=== PATIENT | female | born 1995 | race Caucasian/White ===

== ENCOUNTER 2017-04-14 18:22 | Emergency (ER) | payer OTHER ==
[2017-04-14] MEDS ORDERED: NS 0.9% 1000 ML* 1,000 ML IV ONE (18:57)
[2017-04-14] MEDS ORDERED: Morphine INJ* 4 MG/ML 1 ML CARPUJECT IV ONE (18:57)
[2017-04-14] MEDS ORDERED: Ondansetron INJ* 2 MG/ML VIAL IV ONE (18:57)
[2017-04-14] MEDS ORDERED: Ondansetron INJ* 2 MG/ML VIAL ONE (18:58)
[2017-04-14 19:09] LABS: Hematocrit 39 % (35-47); Mean Corpuscular HGB Conc 33 g/dl (31-36); Mean Corpuscular Hemoglobin 29 pg (27-31); Mean Corpuscular Volume 86 fL (80-97); Mean Platelet Volume 9 um3 (7.4-10.4); Red Blood Count 4.56 10^6/ul (4.0-5.4); Red Cell Distribution Width 14 % (10.5-15); White Blood Count 12.6 10^3/ul (3.5-10.8)
[2017-04-14] MEDS ORDERED: Iodixanol* (CONTRAST) 320 MG/ML 100 ML SDV IV ONE (19:21)
[2017-04-14 19:22] LABS: Albumin 4.4 g/dL (3.2-5.2); BUN/Creatinine Ratio 15.6 (8-20); Calcium 9.1 mg/dL (8.6-10.3); EGFR African American 149.2 (>60); Globulin 2.7 g/dL (2-4); Potassium 3.2 mmol/L (3.5-5.0); Total Bilirubin 0.4 mg/dL (0.2-1.0); Total Protein 7.1 g/dL (6.4-8.9)
[2017-04-14] MEDS ORDERED: Metoclopramide IV* 5 MG/ML 2 ML VIAL IV ONE (19:54)
[2017-04-14] MEDS ORDERED: Metoclopramide IV* 5 MG/ML 2 ML VIAL ONE (19:55)
--- NOTE | 2017-04-14 19:55 | RAD ---
Indication: Fall. Head and neck injury. Vomiting. Comparison: No relevant prior exams available on the [facility] for comparison. Technique: Noncontrast CT vertex of skull through foramen magnum. Report: Small RIGHT parieto-occipital scalp hematoma. Negative for calvarial or skull base fracture. The sulci, ventricles, and basal cisterns are normal for age. Watson matter white matter differentiation is preserved without evidence for edema. No intra or extra axial hemorrhage is detected. Unremarkable visualized orbital contents. Partial opacification of the frontal sinuses. Clear mastoid air spaces. IMPRESSION: 1. RIGHT parietal occipital scalp hematoma. 2. Negative for fracture or traumatic brain injury.
--- NOTE | 2017-04-14 19:58 | RAD ---
INDICATION: Pain post fall. Occipital hematoma. COMPARISON: CT brain of the same date. TECHNIQUE: Multidetector CT images foramen magnum to lung apices without contrast. Multiplanar reformation. REPORT: Mild motion artifact noted at the C6-C7 level. Normal vertebral alignment accounting for exam positioning without spondylolisthesis or subluxation at any level. Negative for cervical vertebral body or posterior element fracture. Negative for paravertebral hematoma. Preserved disc spaces. IMPRESSION: No CT evidence for traumatic cervical spine injury.
--- NOTE | 2017-04-14 20:23 | RAD ---
INDICATION: Fall with occipital hematoma. Vomiting. COMPARISON: No relevant prior exams available on the [facility] [place]. TECHNIQUE: Multidetector CT images were obtained from the lung apices to the ischial tuberosities with 76 mL Omnipaque 300 IV contrast. No oral contrast administered. Multiplanar reformation including bone algorithm lateral series of the thoracic and lumbar sacral spine. CHEST REPORT: Negative for pulmonary contusion, alveolar consolidation, pleural effusion, pneumothorax. Mild residual thymic tissue at the anterior mediastinum without concern. Negative for mediastinal hematoma. Negative for cardiomegaly or pericardial effusion. Unremarkable thoracic aorta. Negative for thoracic lymphadenopathy. Mild anterior column compression fracture of the T12 vertebral body with less than 30% loss of height at the anterior margin of the vertebral body. Negative for involvement of the middle or posterior columns or associated compromise of the central canal. Negative for significant associated paravertebral hematoma. Negative for additional thoracic spine, sternal, rib, or visualized shoulder girdle fracture. Negative for soft tissue hematoma. CHEST IMPRESSION: 1. Mild anterior column compression fracture of the T12 vertebral body with less than 30% loss of height at the anterior margin of the vertebral body. Negative for significant associated paravertebral hematoma. 2. No additional traumatic thoracic injury evident. ABDOMEN PELVIS REPORT: Unremarkable liver, gallbladder, pancreas, spleen. Unremarkable upper GI, small bowel, appendix visualized medial to the cecum, and colon. Negative for ascites, free air, hernias. Normal adrenal glands. Unremarkable kidneys with symmetric contrast excretion. No abnormality along the course of the nondilated ureters. Unremarkable urinary bladder. Anteverted uterus with IUD in place. Unremarkable adnexal regions. Negative for lymphadenopathy. Unremarkable abdominal aorta and iliac arteries. Physiologic distention of the IVC. Negative for lumbar sacral spine, pelvis, or proximal femur fracture. Normal lumbar sacral spine alignment. Preserved disc spaces. ABDOMEN PELVIS IMPRESSION: No traumatic abdominal pelvic visceral injury or lumbar sacral spine, pelvis, or proximal femur fracture or traumatic malalignment. Results discussed with Dr. Bennett 04/14/2017 8:08 PM EDT
[2017-04-14] MEDS ORDERED: PROCHLORPERAZINE INJ 5 MG/ML 2 ML VIAL IV ONE (20:30)
--- NOTE | 2017-04-14 21:08 | ED ---
Celia Salazar Thomas, scribed for Flaquito Bennett MD on 04/14/17 at 1900 . Head Injury - HPI Summary HPI Summary: The patient is a 21 y/o F c/o head, neck, and back pain s/p a fall in which she struck the back of her head on concrete. The patient was hanging from her pull- up bar when she lost her patient resource specialist and fell backwards onto the concrete. The pain is worsened by movement and she is in severe pain. The patient rates the pain 10/ 10. The injury occurred shortly prior to arrival and the patient was driven to the ED by her three friends who accompany her. The patient has been vomiting repeatedly as well. She is in C-collar at time of examination. The patient's preferred pronouns are them/they. 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 - she is accompanied by three friends Mechanism Of Injury: Fall From Height Of: - 7 feet, in which she struck the back of her head on concrete Onset/Duration: Traumatic, Still Present Pain Intensity: 10 Pain Scale Used: 0-10 Numeric Location of Head Injury: Other: - Back of her head Aggravating Factor(s): Movement Alleviating Factor(s): Other: - Nothing Associated Signs And Symptoms: Vomiting - repeatedly - Allergies/Home Medications Allergies/Adverse Reactions: Allergies Allergy/AdvReac Type Severity Reaction Status Date / Time No Known Allergies Allergy Verified 04/14/17 19:40 PMH/Surg Hx/FS Hx/Imm Hx Previously Healthy: No Endocrine/Hematology History: Denies: Hx Diabetes Cardiovascular History: Denies: Hx Hypertension - Surgical History Surgery Procedure, Year, and Place: None Infectious Disease History: No Infectious Disease History: Denies: Traveled Outside the [place] in Last 30 Days - Family History Known Family History: Negative: Hypertension, Diabetes - Social History Alcohol Use: Occasionally Hx Substance Use: Yes Substance Use Type: Reports: Marijuana Hx Tobacco Use: No Smoking Status (MU): Never Smoked Tobacco Review of Systems Negative: Fever, Chills Negative: Erythema - eyes Negative: Sore Throat Negative: Chest Pain Negative: Shortness Of Breath, Cough Positive: Vomiting - repeatedly. Negative: Abdominal Pain, Nausea Negative: dysuria, hematuria Positive: Other - Head, neck, and back pain s/p a fall. Negative: Myalgia, Edema - legs Negative: Rash Neurological: Other - NEGATIVE: dizziness All Other Systems Reviewed And Are Negative: Yes Physical Exam - Summary Physical Exam Summary: Constitutional: Well-developed, Well-nourished, Alert, Cooperative Skin: Warm, Dry HENT: Normocephalic; There is an occipital scalp hematoma. No Racoons eyes; No battles sign; No abrasion; No contusion; No hemotympanum; No maxilla facial tenderness or instability; Dentition are smooth; No dental trauma; No trismus Eyes: EOM normal, PERRL Neck: Trachea is midline. No stridor; No JVD; No step off; No posterior cervical spine tenderness Cardio: Rhythm regular, rate normal Heart sounds normal; Intact distal pulses; The pedal pulses are 2+ and symmetric. Radial pulses are 2+ and symmetric. Pulmonary/Chest wall: Effort normal; Breath sounds normal; Equal chest rise; No flail segment; No rib tenderness; No sternal tenderness Abd: Soft, Appearance normal. No distension; No tenderness; No palpable pulsatile mass; No Cullens sign; No Cho-Turners sign Musculoskeletal: There is posterior cervical midline tenderness. There is also thoracic midline tenderness. Full ROM and no tenderness at hips, ankles, shoulders, elbows and knees; No joint swelling; No paraspinal tenderness; No step off or deformity of the spine; Pelvis is stable to lateral compression and rock Neuro: Alert, Oriented x3, Strength normal, Cranial nerves II-XII are grossly intact. (-) Dysmetria, (-) Nystagmus, (-) Ataxia by finger to nose testing, (-) Sensory deficit. Her upper and lower strengths and sensations are intact. : No blood at urethral meatus Psych: Mood and affect Normal Triage Information Reviewed: Yes Vital Signs On Initial Exam: Initial Vitals Temp Pulse Resp BP Pulse Ox 97.6 F 120 20 0/0 100 04/14/17 18:39 04/14/17 18:39 04/14/17 18:39 04/14/17 18:39 04/14/17 18:39 Vital Signs Reviewed: Yes Diagnostics - Vital Signs Vital Signs Temp Pulse Resp BP Pulse Ox 04/14/17 18:39 97.6 F 120 20 0/0 100 - Laboratory Result Diagrams: 04/14/17 18:55 04/14/17 18:55 Lab Statement: Any lab studies that have been ordered have been reviewed, and results considered in the medical decision making process. - CT CT Brain CT Interpretation: No Acute Changes - 1. RIGHT parietal occipital scalp hematoma. 2. Negative for fracture or traumatic brain injury. ED physician has reviewed this report and agrees. CT Interpretation Completed By: Radiologist CT C-Spine CT Interpretation: No Acute Changes - No CT evidence for traumatic C-Spine injury. ED physician has reviewed this report and agrees. CT Interpretation Completed By: Radiologist CT Chest/Abd/Pel CT Interpretation: No Acute Changes - No traumatic abdominal pelvic visceral injury or lumbar sacral spine, pelvis, or proximal femur fracture or traumatic malalignment. ED physician has reviewed this CT Interpretation Completed By: Radiologist Re-Evaluation - Re-Evaluation First Eval Re-Evaluation Time: 21:02 Change: Unchanged Comment: She is having tingling in her hands bilterally. 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 Head Injury Course/Dx Assessment/Plan: The patient is a 21 y/o F c/o head, neck, and back pain s/p a fall in which she struck the back of her head on concrete. The patient was hanging from her pull-up bar when she lost her patient resource specialist and fell backwards onto the concrete. The pain is worsened by movement and she is in severe pain. The patient rates the pain 10/10. The injury occurred shortly prior to arrival and the patient was driven to the ED by her three friends who accompany her. The patient has been vomiting repeatedly as well. She is in C-collar at time of examination. The patient's preferred pronouns are them/they. In the ED course the patient was given Reglan, morphine, IV fluids, Zofran, and Compazine. Bloodwork was obtained. CT Brain shows 1. RIGHT parietal occipital scalp hematoma. 2. Negative for fracture or traumatic brain injury. CT Chest/Abd/Pel shows No traumatic abdominal pelvic visceral injury or lumbar sacral spine, pelvis, or proximal femur fracture or traumatic malalignment. CT C-Spine No CT evidence for traumatic C-Spine injury. The patient is diagnosed with severe concussion, persistent vomiting, and thoracic spine fracture. I spoke with Dr. Drew Schneider, ED physician at [facility], who accepts the patient for transfer. - Diagnoses Provider Diagnoses: Persistent vomiting, Severe concussion, Thoracic spine fracture - Physician Notifications Discussed Care Of Patient With: Drew Schneider Time Discussed With Above Provider: 20:40 Instructed by Provider To: Other - I spoke with Dr. Drew Schneider, ED physician at [facility], who accepts the patient for transfer. Discharge - Discharge Plan Condition: Fair Disposition: OTHER Discharge Disposition Comment: Transferred to [facility] for higher level of care. Referrals: Tricia Johns NP [Primary Care Provider] - The documentation as recorded by the Celia dumont Thomas accurately reflects the service I personally performed and the decisions made by me, Flaquito Bennett MD.
[2017-04-14 21:40] VITALS: BP 110/62
== END 2017-04-14 21:39 ==
LOC: ED 18:22
DX: S06.0X0A Concussion without loss of consciousness, initial encounter (principal); S22.089A Unspecified fracture of T11-T12 vertebra, initial encounter for closed fracture; R11.10 Vomiting, unspecified; W17.89XA Other fall from one level to another, initial encounter; Y93.B2 Activity, push-ups, pull-ups, sit-ups; Y92.9 Unspecified place or not applicable; Y99.9 Unspecified external cause status
CPT/HCPCS: 36415; 70450; 71260; 72125; 74177; 80053; 83605; 85025; 86850; 86900; 86901; 99285; J2270; J2405; J2765; Q9967

== ENCOUNTER 2017-05-03 14:04 | Emergency (ER) | payer OTHER ==
[2017-05-03 14:50] VITALS: BP 106/52
--- NOTE | 2017-05-03 15:01 | UC ---
Head Injury HPI - HPI Summary HPI Summary: 21 YEAR OLD FEMALE WITH A RECENT CONCUSSION AND CT ETC WORKUP AT [facility] PRESENTS WITH COMPLAINS OF HEADACHE, NAUSEA, AND PHOTOPHOBIA. - History Of Current Complaint Chief Complaint: UCHeadInjury Stated Complaint: FOLLOW UP HEAD INJURY NAUSEA LIGHT SENSITIVE Time Seen by Provider: 05/03/17 15:01 Hx Obtained From: Patient Hx Last Menstrual Period: 04/27/17 Onset/Duration: Gradual Onset Severity Currently: Moderate Severity Initially: Moderate Pain Scale Used: 0-10 Numeric - 5 - Allergies/Home Medications Allergies/Adverse Reactions: Allergies Allergy/AdvReac Type Severity Reaction Status Date / Time No Known Allergies Allergy Verified 05/03/17 14:50 Home Medications: Home Medications Escitalopram Oxalate [Lexapro 20 mg] 1 tab PO DAILY 05/03/17 [History Confirmed 05/03/17] PMH/Surg Hx/FS Hx/Imm Hx Previously Healthy: Yes Other History Of: Negative For: Anticoagulant Therapy - Surgical History Surgical History: None Surgery Procedure, Year, and Place: None - Family History Known Family History: Negative: Hypertension, Diabetes - Social History Alcohol Use: Occasionally Substance Use Type: Marijuana Smoking Status (MU): Never Smoked Tobacco Review of Systems Constitutional: Fatigue Skin: Negative Eyes: Negative ENT: Negative Respiratory: Negative Cardiovascular: Negative Gastrointestinal: Negative Genitourinary: Negative Motor: Negative Neurovascular: Negative Musculoskeletal: Negative Neurological: Headache, Weakness Psychological: Negative All Other Systems Reviewed And Are Negative: Yes Physical Exam Triage Information Reviewed: Yes Vital Signs: Initial Vital Signs Temp 37.2 C 05/03/17 14:42 Pulse 68 05/03/17 14:42 Resp 16 05/03/17 14:42 BP 106/52 05/03/17 14:42 Pulse Ox 100 05/03/17 14:42 Vital Signs Reviewed: Yes Eye Exam: Normal ENT Exam: Normal Dental Exam: Normal Neck exam: Normal Neck: Positive: 1 Respiratory Exam: Normal Cardiovascular Exam: Normal Abdominal Exam: Normal Musculoskeletal Exam: Normal Neurological: Positive: Fatigued Psychological Exam: Normal Skin Exam: Normal Head Injury Course/Dx - Differential Dx/Diagnosis Provider Diagnoses: CONCUSSION. HEADACHE. PHOTOPHOBIA Discharge - Discharge Plan Condition: Stable Disposition: HOME Prescriptions: Acetaminophen TAB* [Tylenol TAB*] 650 mg PO Q6H PRN #100 tab PRN Reason: Headache Patient Education Materials: Concussion (ED), Post Concussion Syndrome (ED) Referrals: Cliff Silveira MD [Medical Doctor] - Tricia Johns NP [Nurse Practitioner] -
== END 2017-05-03 15:15 | disposition home or self-care (01) ==
LOC: UCEAST 14:04
DX: S06.0X9D Concussion with loss of consciousness of unspecified duration, subsequent encounter (principal); X58.XXXD Exposure to other specified factors, subsequent encounter; R51 Headache; R11.0 Nausea; H53.149 Visual discomfort, unspecified; R53.83 Other fatigue
CPT/HCPCS: 99211; G0463